=== PATIENT | male | born 1990 | race Caucasian/White ===

== ENCOUNTER 2016-07-07 18:46 | Emergency (ER) | payer BC, MEDICAID ==
[~2016-07-07] VITALS: Ht 180.3 cm; Wt 97.5 kg
[2016-07-07 18:46] VITALS: BP 151/93; PULSE 110; RESP 14; TEMP 97.9; O2SAT 100
[2016-07-07] MEDS ORDERED: ALPRAZolam 0.25 MG TABLET PO ONE (19:15)
[2016-07-07 19:49] VITALS: BP 142/82; PULSE 98; RESP 14; TEMP 97.9; O2SAT 100
== END 2016-07-07 19:49 | disposition home or self-care (01) ==
LOC: SED 18:46
DX: F41.9 Anxiety disorder, unspecified (principal); F31.9 Bipolar disorder, unspecified
CPT/HCPCS: 99283

== ENCOUNTER 2017-05-22 02:26 | Emergency (ER) | payer MEDICAID ==
[~2017-05-22] VITALS: Ht 180.3 cm; Wt 97.5 kg
[2017-05-22 02:32] VITALS: BP_SYST 150
--- NOTE | 2017-05-22 02:35 | NUR ---
Patient to ER bed 08 to gown for evaluation. Side rails up. Report given to CAM Buitrago
--- NOTE | 2017-05-22 02:43 | NUR ---
Patient AOx4, ambulatory, presents to ER with complaint of abdominal pain 01/17 since October. Patient states hx of constipation. Last BM 05/21/17 in AM, loose consistency. No acute distress noted at this time.
--- NOTE | 2017-05-22 03:10 | NUR ---
ER MD Bucio at bedside for medical evaluation.
[2017-05-22] MEDS ORDERED: NACL 0.9% 1,000 ML IV ONE (03:15)
[2017-05-22] MEDS ORDERED: MAG HYDROX/AL HYDROX/SIMETH 30 ML, BELLADONNA ALKALOIDS/PHENOBARB 10 ML, LIDOCAINE VISC... PO ONE ×3 (03:15)
[2017-05-22] MEDS ORDERED: ONDANSETRON HCL 4 MG/2 ML VIAL IVP ONE (03:15)
--- NOTE | 2017-05-22 03:25 | NUR ---
# 20 gauge angiocath placed to RAC. Use of asceptic technique. Opsite placed over site. Blood return noted. Blood for lab drawn from site. Flushed with 10 cc of normal saline. No evidence of infiltration noted. Patient tolerated well.
[2017-05-22 03:57] LABS: HEMATOCRIT 48.7 % (36-54); MEAN CORPUSCULAR VOLUME 88 fL (79.0-98.0); RED BLOOD CELL COUNT(AUTO) 5.52 MIL/uL (4.2-6.2); WHITE BLOOD COUNT (AUTO) 10.9 K/uL (4.8-10.8)
[2017-05-22 03:58] LABS: BASOPHILS # (AUTO) 0.2 K/uL (0.0-0.2); BASOPHILS % (AUTO) 2.3 % (0.0-2.0); EOSINOPHILS # (AUTO) 0.2 K/uL (0.0-0.4); EOSINOPHILS % (AUTO) 1.5 % (0.0-4.0); LYMPHOCYTES # (AUTO) 3.1 K/uL (1.0-5.5); LYMPHOCYTES % (AUTO) 28.3 % (20.5-51.5); MEAN CORPUSCULAR HEMOGLOBIN 29 pg (27-31); MEAN CORPUSCULAR HGB CONC 33 % (32-36); MONOCYTES # (AUTO) 0.8 K/uL (0.0-1.0); MONOCYTES % (AUTO) 7.2 % (1.7-9.3); NEUTROPHILS # (AUTO) 6.6 K/uL (1.8-7.7); NEUTROPHILS % (AUTO) 60.7 % (40.0-70.0); PLATELET COUNT (AUTO) 250 K/uL (130-430); RED CELL DISTRIBUTION WIDTH 12.2 % (9.0-15.0)
[2017-05-22 03:59] LABS: CALCIUM 9.7 mg/dL (8.4-11.0); CREATININE 0.98 mg/dL (0.55-1.30); POTASSIUM 3.5 mmol/L (3.5-5.1)
[2017-05-22 04:00] LABS: PROTHROMBIN TIME 10.4 SECS (9.5-12.5)
--- NOTE | 2017-05-22 04:00 | NUR ---
No adverse reactions noted after medication administration. Will continue to monitor.
[2017-05-22 04:03] LABS: ALBUMIN 4.8 g/dL (3.4-4.8); TOTAL BILIRUBIN 0.5 mg/dL (0.0-1.0)
--- NOTE | 2017-05-22 04:04 | NUR ---
IVF infusing with no s/s of infiltration at this time. Will cont to monitor.
[2017-05-22 04:18] LABS: BILIRUBIN,URINE NEGATIVE (NEGATIVE); BLOOD, URINE NEGATIVE (NEGATIVE); CLARITY/URINE CLEAR (CLEAR); COLOR,URINE YELLOW (YELLOW); GLUCOSE,URINE NEGATIVE (NEGATIVE); KETONES,URINE NEGATIVE (NEGATIVE); LEUKOCYTE ESTERASE ,URINE NEGATIVE (NEGATIVE); NITRITE, URINE NEGATIVE (NEGATIVE); PROTEIN URINE TRACE (NEGATIVE); UROBILINOGEN,URINE 0.2 (0.2-1.0)
[2017-05-22 04:26] LABS: BACTERIA,URINE MODERATE /HPF (None Seen); RBC,URINE 0-3 /HPF (0-3); WBC,URINE 0-3 /HPF (0-3)
[2017-05-22 05:04] VITALS: BP_SYST 139
--- NOTE | 2017-05-22 05:04 | NUR ---
Patient given written and verbal discharge instructions and verbalizes understanding. ER MD discussed with patient the results and treatment provided. Patient in stable condition. ID arm band removed. IV catheter removed intact and dressing applied, no active bleeding. Rx of and Ranitidine given. Patient educated on pain management and to follow up with PMD. Pain Scale 0/10. Opportunity for questions provided and answered.
== END 2017-05-22 05:04 | disposition home or self-care (01) ==
LOC: SED 02:26
DX: K21.9 Gastro-esophageal reflux disease without esophagitis (principal); F41.9 Anxiety disorder, unspecified; F32.9 Major depressive disorder, single episode, unspecified
CPT/HCPCS: 36415; 80053; 81000; 82150; 83690; 85025; 85610; 85730; 87086; 96361; 96374; 99284; J2001; J2405; J7030

== ENCOUNTER 2017-07-28 23:06 | Emergency (ER) | payer MEDICAID ==
[~2017-07-28] VITALS: Ht 180.3 cm; Wt 96.6 kg
[2017-07-28 23:12] VITALS: BP_SYST 155
[2017-07-28] MEDS ORDERED: MAG HYDROX/AL HYDROX/SIMETH 30 ML, BELLADONNA ALKALOIDS/PHENOBARB 10 ML, LIDOCAINE VISC... PO ONE ×3 (23:45)
[2017-07-28 23:58] LABS: MEAN CORPUSCULAR HGB CONC 33 % (32-36); MONOCYTES # (AUTO) 0.8 K/uL (0.0-1.0); MONOCYTES % (AUTO) 7.8 % (1.7-9.3)
[2017-07-29] LABS: BASOPHILS % (AUTO) 0.4 % (0.0-2.0); EOSINOPHILS # (AUTO) 0.1 K/uL (0.0-0.4); EOSINOPHILS % (AUTO) 1.4 % (0.0-4.0); HEMATOCRIT 50.8 % (36-54); HEMOGLOBIN 16.7 g/dL (14.0-18.0); LYMPHOCYTES # (AUTO) 3.6 K/uL (1.0-5.5); LYMPHOCYTES % (AUTO) 33.9 % (20.5-51.5); MEAN CORPUSCULAR HEMOGLOBIN 29 pg (27-31); MEAN CORPUSCULAR VOLUME 88 fL (79.0-98.0); NEUTROPHILS # (AUTO) 6.2 K/uL (1.8-7.7); NEUTROPHILS % (AUTO) 56.5 % (40.0-70.0); PLATELET COUNT (AUTO) 253 K/uL (130-430); RED BLOOD CELL COUNT(AUTO) 5.77 MIL/uL (4.2-6.2); RED CELL DISTRIBUTION WIDTH 12.4 % (9.0-15.0); WHITE BLOOD COUNT (AUTO) 10.7 K/uL (4.8-10.8)
[2017-07-29 00:13] LABS: BILIRUBIN,URINE NEGATIVE (NEGATIVE); BLOOD, URINE NEGATIVE (NEGATIVE); CLARITY/URINE CLEAR (CLEAR); COLOR,URINE YELLOW (YELLOW); GLUCOSE,URINE NEGATIVE (NEGATIVE); KETONES,URINE NEGATIVE (NEGATIVE); LEUKOCYTE ESTERASE ,URINE NEGATIVE (NEGATIVE); NITRITE, URINE NEGATIVE (NEGATIVE); PH,URINE 6.5 (5.0-8.0); PROTEIN URINE NEGATIVE (NEGATIVE); UROBILINOGEN,URINE 0.2 (0.2-1.0)
[2017-07-29 00:13] LABS: CALCIUM 10.1 mg/dL (8.4-11.0); CREATININE 0.98 mg/dL (0.55-1.30); POTASSIUM 3.4 mmol/L (3.5-5.1)
[2017-07-29 00:18] LABS: ALBUMIN 4.5 g/dL (3.4-4.8); TOTAL BILIRUBIN 0.4 mg/dL (0.0-1.0)
[2017-07-29] MEDS ORDERED: LORazepam 2 MG/ML VIAL IVP ONE (01:30)
[2017-07-29 01:35] VITALS: BP_SYST 149
== END 2017-07-29 01:35 | disposition home or self-care (01) ==
LOC: SED 23:06
DX: R10.31 Right lower quadrant pain (principal); K21.9 Gastro-esophageal reflux disease without esophagitis; F41.9 Anxiety disorder, unspecified; F32.9 Major depressive disorder, single episode, unspecified
CPT/HCPCS: 36415; 74176; 80053; 81003; 83690; 85025; 99285; J2001; J2060

== ENCOUNTER 2019-07-10 22:00 | Emergency (ER) | payer MEDICAID, OTHER ==
[~2019-07-10] VITALS: Ht 180.3 cm; Wt 99.3 kg
[2019-07-10 22:15] VITALS: BP_SYST 156
--- NOTE | 2019-07-11 01:43 | NUR ---
Patient to ER bed 6 to gown for evaluation. Side rails up.
--- NOTE | 2019-07-11 02:24 | NUR ---
ER at bedside examining patient.
[2019-07-11] MEDS ORDERED: CEPHALEXIN 500 MG CAPSULE PO ONE (02:30)
[2019-07-11] MEDS ORDERED: KETOROLAC TROMETHAMINE 60 MG/2 ML VIAL IM ONE (02:30)
--- NOTE | 2019-07-11 02:30 | NUR ---
Curry dsouza in [facility] - 07/11/19 at 0502 by [email or web address] DICK Fikn at bedside examining patient.
--- NOTE | 2019-07-11 02:30 | NUR ---
Pt came to the ED for sinus pain. Reports he has been having LOPES's. Denies n/v/d or fever. Pt was seen in urgent care and was given cough syrup, augmentin and albuterol. No other complaints/injuries noted. Will cont. to monitor.
[2019-07-11 03:06] VITALS: BP_SYST 156
--- NOTE | 2019-07-11 03:06 | NUR ---
Patient given written and verbal discharge instructions and verbalizes understanding. ER MD Dr. Joseph discussed with patient the results and treatment provided. Patient in stable condition. ID arm band removed. Rx of ibuprofen given. Patient educated on pain management and to follow up with PMD. Pain Scale 0/10. Opportunity for questions provided and answered. Medication side effect fact sheet provided.
== END 2019-07-11 03:06 | disposition home or self-care (01) ==
LOC: SED 22:00
DX: J32.1 Chronic frontal sinusitis (principal); K21.9 Gastro-esophageal reflux disease without esophagitis; F41.9 Anxiety disorder, unspecified
CPT/HCPCS: 86710; 96372; 99283; J1885; 36415